=== PATIENT | female | born 1970 | race Caucasian/White ===

== ENCOUNTER 2017-03-29 21:50 | Emergency (ER) | payer OTHER | END 2017-03-29 23:00 | disposition home or self-care (01) | LOC: FER 21:50 | DX: L03.115 Cellulitis of right lower limb (principal); H65.92 Unspecified nonsuppurative otitis media, left ear; S80.811A Abrasion, right lower leg, initial encounter; E11.9 Type 2 diabetes mellitus without complications; I10 Essential (primary) hypertension; F17.210 Nicotine dependence, cigarettes, uncomplicated; Z79.84 Long term (current) use of oral hypoglycemic drugs; W45.8XXA Other foreign body or object entering through skin, initial encounter | CPT/HCPCS: 99283 ==

== ENCOUNTER → 2021-04-25 | Day surgery (SDC) | payer OTHER ==
[~2021-04-25] VITALS: Ht 170.2 cm; Wt 79.8 kg
[~2021-04-25] MED LIST: AZO BLADDER CO1 EACH PO; BACTRIM DS TAB1 EACH PO; BUPRENORPHIN-N1 EACH PO; CIPRODEX OTIC7.5 ML AU; DITROPAN XL *OUT5 MG PO; IBUPROFEN800 MG PO; KEFLEX250 MG PO; METFORMIN HCL500 MG PO; NEURONTIN300 MG PO; PRAVACHOL20 M1 PO; PROTONIX40 M1 PO; PROZAC20 MG PO; STEGLATRO15 MG PO; SUBOXONE 8 MG-1 EACH PO; TRULICITY0.75 MG/0. IN; WELLBUTRIN SR150 MG PO; WELLBUTRIN XL150 MG PO; ZESTRIL5 MG PO; ZYPREXA 5MG TABL5 MG PO
== END | disposition home or self-care (01) ==
LOC: FAS 08:05
DX: K31.89 Other diseases of stomach and duodenum (principal); K44.9 Diaphragmatic hernia without obstruction or gangrene; K58.1 Irritable bowel syndrome with constipation; K21.9 Gastro-esophageal reflux disease without esophagitis; F17.210 Nicotine dependence, cigarettes, uncomplicated; M19.90 Unspecified osteoarthritis, unspecified site; I10 Essential (primary) hypertension; F11.21 Opioid dependence, in remission; E78.5 Hyperlipidemia, unspecified; E11.42 Type 2 diabetes mellitus with diabetic polyneuropathy; F15.21 Other stimulant dependence, in remission; Z79.84 Long term (current) use of oral hypoglycemic drugs; Z79.899 Other long term (current) drug therapy
CPT/HCPCS: 93005; J2250; J2704; J7120

== ENCOUNTER 2021-11-05 08:48 | Emergency (ER) | payer OTHER ==
[2021-11-05 09:59] LABS: BASOPHIL 0.9 % (0-2); BILIRUBIN NEGATIVE (NEGATIVE); BLOOD NEGATIVE Ery/uL (NEGATIVE); CLARITY CLEAR (CLEAR); COLOR YELLOW (YELLOW); EOSINOPHIL 2.1 % (0-5); GLUCOSE (U) NORMAL (NORMAL); HCT 46.5 % (37.0-47.0); HGB 15.9 g/dl (12.5-16.0); LEUKOCYTES NEGATIVE Leu/uL (NEGATIVE); LYMPHOCYTE 20.3 % (15-48); MCH 32.1 pg (25.0-31.0); MCHC 34.2 g/dL (32.0-36.0); MCV 93.8 fL (78.0-100.0); MONOCYTE 5.2 % (0-12); MPV 10.2 fL (6.0-9.5); NEUTROPHIL 71.3 % (41-80); NITRITE NEGATIVE (NEGATIVE); NRBC 0; PLT 249 K/uL (150-400); PROTEIN NEGATIVE (NEGATIVE); RBC 4.96 M/uL (4.20-5.40); RDW 11.8 % (11.5-14.0); SPECIFIC GRAVITY >=1.030 (1.001-1.030); UROBILINOGEN 0.2 mg/dL (0.2-1.0); WBC 10.3 K/uL (4.0-10.5)
[2021-11-05 10:19] LABS: ALBUMIN 3.9 g/dL (3.4-5.0); BILIRUBIN - TOTAL 0.2 mg/dL (0.2-1.0); CREATININE 0.62 mg/dL (0.51-0.95); GLOBULIN (CALCULATION) 3.4 g/dL; POTASSIUM 4.4 mmol/L (3.5-5.1); TOTAL PROTEIN 7.3 g/dL (6.4-8.2)
[2021-11-05] MEDS ORDERED: PERCOCET 5-3251 EACH PO (11:37)
[2021-11-05] MEDS ORDERED: ONDANSETRON ODT4 MG PO (11:37)
== END 2021-11-05 11:59 | disposition home or self-care (01) ==
LOC: FER 08:48
PROVIDERS: Internal Medicine
DX: K52.9 Noninfective gastroenteritis and colitis, unspecified (principal); E11.9 Type 2 diabetes mellitus without complications; I10 Essential (primary) hypertension; F17.210 Nicotine dependence, cigarettes, uncomplicated
CPT/HCPCS: 36415; 80053; 81003; 83690; 85025; J1170; J2405

== ENCOUNTER 2022-05-20 09:21 | Emergency (ER) | payer OTHER ==
[~2022-05-20 09:21] MED LIST changes: +ONDANSETRON ODT4 MG PO; +PERCOCET 5-3251 EACH PO
[2022-05-20] MEDS ORDERED: CEPHALEXIN500 MG PO (10:13)
== END 2022-05-20 10:30 | disposition home or self-care (01) ==
LOC: FER 09:21
DX: S61.412A Laceration without foreign body of left hand, initial encounter (principal); I10 Essential (primary) hypertension; E11.9 Type 2 diabetes mellitus without complications; Z23 Encounter for immunization; W26.0XXA Contact with knife, initial encounter; Y93.89 Activity, other specified; Y92.009 Unspecified place in unspecified non-institutional (private) residence as the place of occurrence of the external cause
CPT/HCPCS: 90471; 90715; 96372; J1885

== ENCOUNTER 2022-07-07 08:37 | Emergency (ER) | payer OTHER ==
[~2022-07-07 08:37] MED LIST changes: +CEPHALEXIN500 MG PO
[2022-07-07 09:28] LABS: BASOPHIL 0.8 % (0-2); EOSINOPHIL 2.8 % (0-5); HCT 42.6 % (37.0-47.0); HGB 14.4 g/dl (12.5-16.0); LYMPHOCYTE 21.5 % (15-48); MCH 31.1 pg (25.0-31.0); MCHC 33.8 g/dL (32.0-36.0); MONOCYTE 5.9 % (0-12); MPV 10.2 fL (6.0-9.5); NEUTROPHIL 68.7 % (41-80); NRBC 0; PLT 259 K/uL (150-400); RBC 4.63 M/uL (4.20-5.40); RDW 11.8 % (11.5-14.0); WBC 12.7 K/uL (4.0-10.5)
[2022-07-07 09:49] LABS: ALBUMIN 3.9 g/dL (3.4-5.0); BILIRUBIN - TOTAL 0.2 mg/dL (0.2-1.0); BUN/CREAT RATIO (CALC) 19.5 RATIO; CREATININE 0.82 mg/dL (0.51-0.95); POTASSIUM 4.3 mmol/L (3.5-5.1); TOTAL PROTEIN 6.9 g/dL (6.4-8.2)
[2022-07-07 10:08] LABS: BILIRUBIN NEGATIVE (NEGATIVE); BLOOD NEGATIVE Ery/uL (NEGATIVE); CLARITY CLEAR (CLEAR); COLOR YELLOW (YELLOW); GLUCOSE (U) NORMAL (NORMAL); LEUKOCYTES NEGATIVE Leu/uL (NEGATIVE); NITRITE NEGATIVE (NEGATIVE); PROTEIN NEGATIVE (NEGATIVE); UROBILINOGEN 0.2 mg/dL (0.2-1.0)
[2022-07-07] MEDS ORDERED: COLACE100 M1 PO (10:40)
== END 2022-07-07 11:00 | disposition home or self-care (01) ==
LOC: FER 08:37
PROVIDERS: Emergency Medicine
DX: R10.11 Right upper quadrant pain (principal); R10.31 Right lower quadrant pain; K59.00 Constipation, unspecified; I10 Essential (primary) hypertension; E11.9 Type 2 diabetes mellitus without complications; F17.210 Nicotine dependence, cigarettes, uncomplicated; Z79.899 Other long term (current) drug therapy
CPT/HCPCS: 36415; 80053; 81003; 82150; 83690; 85025; J1885; J2405; J7030